=== PATIENT | male | born 2000 | race Caucasian/White ===

== ENCOUNTER 2021-08-26 08:12 | Emergency (ER) | payer SELFPAY ==
[2021-08-26] MEDS ORDERED: Amoxicillin/Clavulanate K 875-125 MG Tab PO ONE (08:43)
[2021-08-26] MEDS ORDERED: Ibuprofen 800 MG Tab PO ONE (08:44)
--- NOTE | 2021-08-26 08:50 | EDM.PDOC ---
ED HPI GENERAL MEDICAL PROBLEM - General Chief Complaint: General Stated Complaint: SWELLING ON LEFT SIDE FACE Time Seen by Provider: 08/26/21 08:37 - History of Present Illness INITIAL COMMENTS - FREE TEXT/NARRATIVE: 21-year male presents complaining of left facial swelling and dental pain since yesterday. Patient states that he has had a long time history of dental caries. But started having pain and swelling starting yesterday in the evening. No history of diabetes. No trauma. No exacerbating relieving factors left lower jaw Pain Score (Numeric/FACES): 6 - Related Data Allergies Allergy/AdvReac Type Severity Reaction Status Date / Time No Known Allergies Allergy Verified 08/26/21 08:24 Home Meds: Home Meds Amoxicillin/Potassium Clav [Augmentin 875-125 Tablet] 1 each PO BID #20 tablet 08/26/21 [Rx] Past Medical History - Past Health History Medical/Surgical History: Denies Medical/Surgical History - Infectious Disease History Infectious Disease History: Reports: None Social & Family History - Family History Family Medical History: No Pertinent Family History - Tobacco Use Tobacco Use Status *Q: Current Every Day Tobacco User Years of Tobacco use: 4 Packs/Tins Daily: 1 - Recreational Drug Use Recreational Drug Use: Yes Recreational Drug Type: Reports: Marijuana/Hashish ED ROS GENERAL - Review of Systems Review Of Systems: See Below Constitutional: Denies: Fever HEENT: Reports: Other (Dental pain) Respiratory: Reports: No Symptoms Skin: Reports: Other (Swelling to the left side of the face) ED EXAM, GENERAL - Physical Exam Exam: See Below Free Text/Narrative:: CONSTITUTIONAL: well appearing in no acute distress SKIN: dry, and intact without rash HENT: Normocephalic, atraumatic. Patient with some minor swelling to the left side of the face. Intraorally in the most rear molar there is some edema surrounding the molar and tenderness. There is no periapical fluid collection NECK: normal range of motion PULMONARY: normal chest rise and fall, no respiratory distress or stridor NEUROLOGIC: normal speech, moves all extremities, grossly non-focal MUSCULOSKELETAL: no gross deformities, atraumatic PSYCHIATRIC: normal mood and affect Course - Vital Signs Text/Narrative:: Differential diagnosis: Facial cellulitis, gingivitis, periapical dental abscess, other Patient presents complaining of dental pain. Mild swelling to the side of the face. Some tenderness to the tissue surrounding the tooth consistent with infection but no abscess. Patient without trismus or evidence of deep space spread. Symptoms just started last night in regard to significant pain and swelling. Augmentin with return precautions reevaluation is needed and dentistry follow-up. Last Recorded V/S: Last Vital Signs Temp 35.6 C L 08/26/21 08:20 Pulse 76 08/26/21 08:20 Resp 16 08/26/21 08:20 BP 132/53 L 08/26/21 08:20 Pulse Ox 97 08/26/21 08:20 - Orders/Labs/Meds Orders: Active Orders 24 hr Category Date Time Status Amoxicillin/Clavulanate K [Augmentin 875 MG/125 MG] Med 08/26/21 08:43 Once 1 tab PO ONETIME ONE Ibuprofen [Motrin] Med 08/26/21 08:44 Once 800 mg PO ONETIME ONE Departure - Departure Time of Disposition: 08:49 Disposition: DC/Tfer W/I Hosp To Swing 61 Condition: Good Clinical Impression: Pain, dental - Discharge Information Instructions: Dental Pain Referrals: PCP,None [Primary Care Provider] - Additional Instructions: Take antibiotics as prescribed. Ibuprofen for pain. Return in 2 days for reevaluation if significant swelling still persist. Return sooner for difficulty with swallowing, difficulty with opening mouth, any change or worsening condition. Follow-up with dentistry this week Sepsis Event Note (ED) - Evaluation Sepsis Screening Result: No Definite Risk - Focused Exam Vital Signs: Vital Signs Temp Pulse Resp BP Pulse Ox 08/26/21 08:20 35.6 C L 76 16 132/53 L 97 - My Orders Last 24 Hours: My Active Orders 08/26/21 08:43 Amoxicillin/Clavulanate K [Augmentin 875 MG/125 MG] 1 tab PO ONETIME ONE 08/26/21 08:44 Ibuprofen [Motrin] 800 mg PO ONETIME ONE - Assessment/Plan Last 24 Hours: My Active Orders 08/26/21 08:43 Amoxicillin/Clavulanate K [Augmentin 875 MG/125 MG] 1 tab PO ONETIME ONE 08/26/21 08:44 Ibuprofen [Motrin] 800 mg PO ONETIME ONE
== END 2021-08-26 09:00 | disposition home or self-care (01) ==
LOC: MW.ED 08:12
DX: K08.89 Other specified disorders of teeth and supporting structures (principal); Z72.0 Tobacco use
CPT/HCPCS: 99283; A9270